=== PATIENT | female | born 1995 ===

== ENCOUNTER 2023-06-19 08:02 | Emergency (ER) | payer SELFPAY ==
[2023-06-19] MEDS ORDERED: Dexamethasone 4 MG Tab PO ONE (08:27)
[2023-06-19] MEDS ORDERED: Acetaminophen 500 MG Tab PO ONE (08:28)
[2023-06-19 09:45] LABS: CORONAVIRUS COVID-19 NAA NEGATIVE (NEGATIVE); INFLUENZA A NAA NEGATIVE (NEGATIVE); INFLUENZA B NAA NEGATIVE (NEGATIVE)
== END 2023-06-19 09:04 | disposition home or self-care (01) ==
LOC: MW.ED 08:02
DX: J02.9 Acute pharyngitis, unspecified (principal); Z20.822 Contact with and (suspected) exposure to COVID-19
CPT/HCPCS: 0240U; 87651; 99283; A9270; J8540